=== PATIENT | male | born 1945 | race Caucasian/White ===

== ENCOUNTER 2022-02-21 13:35 | Inpatient (IN) | payer BC, MEDICARE ==
[2022-02-21 14:55] LABS: Basophils % (A) 1 %; Eosinophils # (A) 0.1 k/uL (0-0.7); Eosinophils % (A) 2 %; HCT 44.5 % (39.0-53.0); Lymphocytes # (A) 0.7 k/uL (1.0-4.8); Lymphocytes % (A) 14 %; MCHC 33.8 g/dL (31.0-37.0); MCV 85.8 fL (80.0-100.0); Mean Platelet Volume 9.2; Monocytes # (A) 0.4 k/uL (0-1.0); Monocytes % (A) 9 %; Neutrophils # (A) 3.3 k/uL (1.3-7.7); Neutrophils % (A) 70 %; Platelet Count 267 k/uL (150-450); RBC 5.18 m/uL (4.30-5.90); RDW 12.2 % (11.5-15.5); WBC 4.6 k/uL (3.8-10.6)
[2022-02-21 15:10] LABS: Partial Thromboplastin Time 25.4 sec (22.0-30.0); Prothrombin Time 10.7 sec (9.0-12.0)
--- NOTE | 2022-02-21 15:10 | XR ---
EXAMINATION TYPE: XR chest 2V DATE OF EXAM: 02/21/2022 3:04 PM COMPARISON: none TECHNIQUE: XR chest 2V Frontal and lateral views of the chest. CLINICAL INDICATION:Male, 76 years old with history of Chest Pain; FINDINGS: Lungs/Pleura: Multifocal airspace opacities most pronounced on the left. No evidence of pneumothorax or pleural effusion. Pulmonary vascularity: Unremarkable. Heart/mediastinum: Cardiomediastinal silhouette is unremarkable. Musculoskeletal: No acute osseous pathology. IMPRESSION: Multifocal airspace opacities concerning for pneumonia.
[2022-02-21 15:11] LABS: Albumin 3.5 g/dL (3.5-5.0); Calcium 8.5 mg/dL (8.4-10.2); Magnesium 2.5 mg/dL (1.6-2.3); Potassium 4.3 mmol/L (3.5-5.1); Total Protein 6.6 g/dL (6.3-8.2)
--- NOTE | 2022-02-21 16:35 | ED ---
General Adult HPI - General Chief complaint: Chest Pain Stated complaint: SOB,Cough,sent by PCP Time Seen by Provider: 02/21/22 15:56 Source: patient Mode of arrival: ambulatory Limitations: no limitations - History of Present Illness Initial comments: Dictation was produced using [employer] dictation software. please excuse any grammatical, word or spelling errors. Chief Complaint: 76-year-old male presents emergency Department with episode of chest pain History of Present Illness: Is 76-year-old male he had cold lead 3 weeks ago. He states that he was sick for several days however recovered. After return from [place] developed significant coughing. Initially was productive however last couple days as dry. Patient had some sharp chest pain is worse with deep inspiration. No associated nausea or diaphoresis. Patient states that his coughing improved after he was prescribed cough medicines from his primary care doctor. He had a discussion with primary care doctor about his chest symptoms he was instructed to come to the ER for further care. Patient overall feels better that he did since stu COVID-19. He slowly improving daily. Denies any fever. He feels mildly winded whenever he ambulates but that is also improving.. The ROS documented in this emergency department record has been reviewed and confirmed by me. Those systems with pertinent positive or negative responses have been documented in the HPI. All other systems are other negative and/or noncontributory. PHYSICAL EXAM: General Impression: Alert and oriented x3, not in acute distress HEENT: Normocephalic atraumatic, extra-ocular movements intact, pupils equal and reactive to light bilaterally, mucous membranes moist. Cardiovascular: Heart regular rate and rhythm Chest: Able to complete full sentences, no retractions, no tachypnea, mild crackles heard in the left lung base Abdomen: abdomen soft, non-tender, non-distended, no organomegaly Musculoskeletal: Pulses present and equal in all extremities, no peripheral edema Motor: no focal deficits noted Neurological: CN II-XII grossly intact, no focal motor or sensory deficits noted Skin: Intact with no visualized rashes Psych: Normal affect and mood ED course: 76-year-old male presents emergency department for atypical chest pain. Patient is recovering from COVID-19. vital signs upon arrival are within acceptable limits. EKG is unremarkable. Laboratory evaluation obtained. CBC unremarkable. Coag panel negative. Metabolic panel within acceptable limits. D-dimer significantly elevated at 6.36. Patient still testing positive on rapid COVID-[address] angiography of the chest obtained showing bilateral patchy pulmonary infiltrates and bilateral lower lobe multiple small pulmonary emboli. Patient initially order for heparin however after discussion with sound physician they requested oral eliquis. Patient be admitted with consultation to pulmonology. EKG interpretation: Ventricular rate 92, sinus rhythm,. 136, QS 86, QTC 392. No IA prolongation, no QTC prolongation, no ST or T-wave changes noted. Overall, this EKG is unremarkable - Related Data Allergies Allergy/AdvReac Type Severity Reaction Status Date / Time codeine Allergy Unknown Verified 02/21/22 17:59 Review of Systems ROS Statement: Those systems with pertinent positive or pertinent negative responses have been documented in the HPI. ROS Other: All systems not noted in ROS Statement are negative. Past Medical History Past Medical History: No Reported History History of Any Multi-Drug Resistant Organisms: None Reported Past Surgical History: Orthopedic Surgery Additional Past Surgical History / Comment(s): knee surgery Past Psychological History: No Psychological Hx Reported Smoking Status: Former smoker Past Alcohol Use History: Occasional Past Drug Use History: None Reported General Exam Limitations: no limitations Course Vital Signs 02/21/22 02/21/22 13:49 16:06 Temperature 98.9 F Pulse Rate 116 H 82 Respiratory 20 20 Rate Blood Pressure 126/80 140/102 O2 Sat by Pulse 97 98 Oximetry Medical Decision Making - Lab Data Result diagrams: 02/21/22 14:21 02/21/22 14:21 Lab Results 02/21/22 02/21/22 02/21/22 Range/Units 14:21 14:21 14:21 WBC 4.6 (3.8-10.6) k/uL RBC 5.18 (4.30-5.90) m/uL Hgb 15.0 (13.0-17.5) gm/dL Hct 44.5 (39.0-53.0) % MCV 85.8 (80.0-100.0) fL MCH 29.0 (25.0-35.0) pg MCHC 33.8 (31.0-37.0) g/dL RDW 12.2 (11.5-15.5) % Plt Count 267 (150-450) k/uL MPV 9.2 Neutrophils % 70 % Lymphocytes % 14 % Monocytes % 9 % Eosinophils % 2 % Basophils % 1 % Neutrophils # 3.3 (1.3-7.7) k/uL Lymphocytes # 0.7 L (1.0-4.8) k/uL Monocytes # 0.4 (0-1.0) k/uL Eosinophils # 0.1 (0-0.7) k/uL Basophils # 0.0 (0-0.2) k/uL PT 10.7 (9.0-12.0) sec INR 1.0 (<1.2) APTT 25.4 (22.0-30.0) sec D-Dimer (<0.60) mg/L FEU Sodium 135 L (137-145) mmol/L Potassium 4.3 (3.5-5.1) mmol/L Chloride 97 L (98-107) mmol/L Carbon Dioxide 25 (22-30) mmol/L Anion Gap 13 mmol/L BUN 22 H (9-20) mg/dL Creatinine 0.96 (0.66-1.25) mg/dL Est GFR (CKD-EPI)AfAm 89 (>60 ml/min/1.73 sqM) Est GFR (CKD-EPI)NonAf 77 (>60 ml/min/1.73 sqM) Glucose 107 H (74-99) mg/dL Calcium 8.5 (8.4-10.2) mg/dL Magnesium 2.5 H (1.6-2.3) mg/dL Total Bilirubin 1.0 (0.2-1.3) mg/dL AST 44 (17-59) U/L ALT 49 (4-49) U/L Alkaline Phosphatase 90 (38-126) U/L Troponin I (0.000-0.034) ng/mL Total Protein 6.6 (6.3-8.2) g/dL Albumin 3.5 (3.5-5.0) g/dL Coronavirus (PCR) (Not Detectd) 02/21/22 02/21/22 02/21/22 Range/Units 14:21 16:06 17:05 WBC (3.8-10.6) k/uL RBC (4.30-5.90) m/uL Hgb (13.0-17.5) gm/dL Hct (39.0-53.0) % MCV (80.0-100.0) fL MCH (25.0-35.0) pg MCHC (31.0-37.0) g/dL RDW (11.5-15.5) % Plt Count (150-450) k/uL MPV Neutrophils % % Lymphocytes % % Monocytes % % Eosinophils % % Basophils % % Neutrophils # (1.3-7.7) k/uL Lymphocytes # (1.0-4.8) k/uL Monocytes # (0-1.0) k/uL Eosinophils # (0-0.7) k/uL Basophils # (0-0.2) k/uL PT (9.0-12.0) sec INR (<1.2) APTT (22.0-30.0) sec D-Dimer 6.36 H (<0.60) mg/L FEU Sodium (137-145) mmol/L Potassium (3.5-5.1) mmol/L Chloride (98-107) mmol/L Carbon Dioxide (22-30) mmol/L Anion Gap mmol/L BUN (9-20) mg/dL Creatinine (0.66-1.25) mg/dL Est GFR (CKD-EPI)AfAm (>60 ml/min/1.73 sqM) Est GFR (CKD-EPI)NonAf (>60 ml/min/1.73 sqM) Glucose (74-99) mg/dL Calcium (8.4-10.2) mg/dL Magnesium (1.6-2.3) mg/dL Total Bilirubin (0.2-1.3) mg/dL AST (17-59) U/L ALT (4-49) U/L Alkaline Phosphatase (38-126) U/L Troponin I <0.012 (0.000-0.034) ng/mL Total Protein (6.3-8.2) g/dL Albumin (3.5-5.0) g/dL Coronavirus (PCR) Detected A (Not Detectd) Disposition Clinical Impression: Pulmonary emboli, COVID-19 Disposition: ADMITTED IP TO THIS [facility] Condition: Fair Referrals: Perla Santiago DO [Primary Care Provider] - 1-2 days Decision Time: 18:04
[2022-02-21] MEDS ORDERED: HEPARIN SODIUM 1,000 UN/ML (10ML VL) IV ONE (17:47)
[2022-02-21] MEDS ORDERED: HEPARIN SODIUM 1,000 UN/ML (10ML VL) IV PRN (17:47)
--- NOTE | 2022-02-21 17:51 | CT ---
EXAMINATION TYPE: CT angio chest DATE OF EXAM: 02/21/2022 COMPARISON: None HISTORY: pe CT DLP: 316.7 mGycm Automated exposure control for dose reduction was used. CONTRAST: Performed with IV Contrast, patient injected with 80 mL of Isovue 370. Images obtained from the thoracic inlet to the diaphragm with the IV contrast. There are 3-D post processed images. There is some patchy reticular interstitial and airspace infiltrate in the lateral left upper lobe. T here is bilateral lower lobe patchy predominantly interstitial infiltrates. Thoracic aorta is intact. No aneurysm or dissection. No mediastinal adenopathy. There are no hilar ma sses. There is filling defect in the right lower lobe pulmonary artery in the posterior basal segment branch. There are small multiple filling defects in the left lower lobe pulmonary artery in the ante rior and lateral basal segment branches. The thoracic spine is intact. Sternum is intact. No compression fracture. The upper abdominal soft tissues are intact. IMPRESSION: Bilateral patchy pulmonary infiltrates. 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 Bilateral lower lobe multiple small pulmonary emboli. Exam was discussed with emergency room attending staff at 5:45 PM.
[2022-02-21] MEDS ORDERED: HEPARIN SOD,PORK IN 0.45% NACL 25,000 UNIT in 0.45% NACL 1 250ML.BAG IV SCH (18:00)
[2022-02-21] MEDS ORDERED: NALOXONE 0.4 MG/ML 1 ML VIAL IV PRN (18:01)
[2022-02-21] MEDS ORDERED: SODIUM CHLORIDE 0.9% 1,000 ML IV SCH (18:15)
[2022-02-21] MEDS: APIXABAN 5 MG TAB PO SCH (18:26)
[2022-02-21] MEDS ORDERED: BENZONATATE 100 MG CAP PO PRN ×2 (21:36→23:41)
--- NOTE | 2022-02-22 00:06 | P.HPIM ---
History of Present Illness H&P Date: 02/21/22 Chief Complaint: shortness of breath 76 year old male healthy overall, denies any significant past medical history patient comes in due to worsening shortness of breath over the past 4 days. he was diagnosed with covid 3 weeks ago, and had minimal symptoms the whole durati on of his illness, however, he started noticed worsening coughing and shortness of breath with exertion over the past 4 days , which got worse today and decided to come in for evaluation. he also was experiencing retrosternal chest pain across his chest today worse with breathing and coughing he denies any recent travel, hospital stay , he is unvaccinated, he denies any cardiac history or blood clots in the ED blood work showed elevated d dimer, covid positive, CTA of the chest showed bilateral patchy infiltrates and multiple small PE s inthe lower lobes Review of Systems Pertinent positives as noted in HPI. All other systems were reviewed and are negative Past Medical History Past Medical History: No Reported History History of Any Multi-Drug Resistant Organisms: None Reported Past Surgical History: Orthopedic Surgery Additional Past Surgical History / Comment(s): knee surgery Past Psychological History: No Psychological Hx Reported Smoking Status: Former smoker Past Alcohol Use History: Occasional Past Drug Use History: None Reported - Past Family History Father Additional Family Medical History / Comment(s): DOUBLE HERNIA Mother Additional Family Medical History / Comment(s): MOM HAD A BAD HEART AT 96 Medications and Allergies Home Medications Medication Instructions Recorded Confirmed Type Ascorbic Acid/Collagen Hydr 1 cap PO DAILY 02/21/22 02/21/22 History [Collagen Plus Vit C Capsule] Benzonatate [Tessalon Perle] 200 mg PO TID PRN 02/21/22 02/21/22 History Fluticasone Propionate 1 - 2 spray EA NOSTRIL DAILY PRN 02/21/22 02/21/22 History Immunity Support Supplement 1 tab PO DAILY 02/21/22 02/21/22 History Montelukast [Singulair] 10 mg PO DAILY 02/21/22 02/21/22 History [place]-3/Dha/Epa/Fish Oil [Fish Oil 1 cap PO DAILY 02/21/22 02/21/22 History 1,000 mg Softgel] Omeprazole [PriLOSEC] 40 mg PO DAILY 02/21/22 02/21/22 History Pyridoxine [Vitamin B-6] 50 mg PO DAILY 02/21/22 02/21/22 History Vitamin D W/Zinc 1 tab PO DAILY 02/21/22 02/21/22 History hydrOXYzine pamoate [hydrOXYzine 25 mg PO HS 02/21/22 02/21/22 History PAMOATE] Allergies Allergy/AdvReac Type Severity Reaction Status Date / Time codeine Allergy Unknown Verified 02/21/22 17:59 Physical Exam Vitals: Vital Signs Temp Pulse Resp BP Pulse Ox 02/21/22 18:30 82 20 140/97 98 02/21/22 16:06 82 20 140/102 98 02/21/22 13:49 98.9 F 116 H 20 126/80 97 Intake and Output 02/21/22 02/21/22 02/21/22 06:59 14:59 22:59 Other: Weight 77.111 kg Constitutional: No acute distress, conversant, pleasant Eyes: Anicteric sclerae, moist conjunctiva, Pupils equal round reactive to light ENMT: NC/AT Oropharynx clear, no erythema, or exudates Neck: Supple, no masses, or JVD No carotid bruits No thyromegaly Lungs: Clear to auscultation Clear to percussion Normal respiratory effort, no accessory muscle use Cardiovascular: Heart regular in rate and rhythm, No murmurs, gallops, or rubs No peripheral edema Abdominal: Soft Nontender, no guarding, rebound or rigidity Abdomen moving with respiration Normoactive bowel sounds No hepatomegaly, No splenomegaly No palpable mass No abdominal wall hernia noted Skin: Normal temperature, tone, texture, turgor No induration No subcutaneous nodules No rash, lesions No ulcers Extremities: No digital cyanosis No clubbing Pedal pulses intact and symmetrical Radial pulses intact and symmetrical No calf tenderness Psychiatric: Alert and oriented to person, place and time Appropriate affect fair judgement Neuro Muscles Strength 5/5 in all 4 extremities Sensation to light touch grossly present throughout Cranial nerves II-XII grossly intact No focal sensory deficits Lymphatics: no palpable cervical or supraclavicular , lymph nodes Results CBC & Chem 7: 02/21/22 14:21 02/21/22 14:21 Labs: Abnormal Lab Results - Last 24 Hours (Table) 02/21/22 02/21/22 02/21/22 Range/Units 14:21 14:21 16:06 Lymphocytes # 0.7 L (1.0-4.8) k/uL D-Dimer 6.36 H (<0.60) mg/L FEU Sodium 135 L (137-145) mmol/L Chloride 97 L (98-107) mmol/L BUN 22 H (9-20) mg/dL Glucose 107 H (74-99) mg/dL Magnesium 2.5 H (1.6-2.3) mg/dL Coronavirus (PCR) (Not Detectd) 02/21/22 Range/Units 17:05 Lymphocytes # (1.0-4.8) k/uL D-Dimer (<0.60) mg/L FEU Sodium (137-145) mmol/L Chloride (98-107) mmol/L BUN (9-20) mg/dL Glucose (74-99) mg/dL Magnesium (1.6-2.3) mg/dL Coronavirus (PCR) Detected A (Not Detectd) Assessment and Plan Assessment: COVid bilateral PE vital signs stable patient was started on eliquis in the ED admitted for pulmonary evaluation monitor vital signs monitor for oxygen requirement patient was not hypoxic with ambulation on room air PRN cough suppressant full code DVT PPX on eliquis for PE
[2022-02-22] MEDS ORDERED: PANTOPRAZOLE 40 MG TABLET PO SCH (07:30)
[2022-02-22] MEDS ORDERED: MONTELUKAST 10 MG TAB PO SCH (09:00)
[2022-02-22] MEDS: APIXABAN 5 MG TAB PO SCH (09:10)
--- NOTE | 2022-02-22 09:21 | P.DS ---
Providers Date of admission: 02/21/22 18:01 Expected date of discharge: 02/22/22 Attending physician: Juan Glaser MD Consults: 02/21/22 17:53 Consult Physician Routine Consulting Provider: Ishmael Dangelo Consult Reason/Comments: PE, covid Do you want consulting provider notified?: Yes Primary care physician: Perla Santiago DO Hospital Course: 60 male with no past medical history recent diagnosis of COVID-19 3 weeks ago presents the ED for chest pain and shortness of breath. In the ED, his vital signs are stable except for tachycardia with heart rate of 116. CBC was benign. Coagulation panel was negative. D-dimer was 6.36. CMP showed sodium of 135, chloride of 97, BUN of 22, glucose of 107. Magnesium was 2.5. Troponin was less than 0.012. COVID-19 positive. EKG showed normal sinus rhythm with ventricular rate of 92. Chest x-ray showed multifocal airspace opacities concerning for pneumonia. CTA chest showed bilateral patchy pulmonary infiltrates, consistent with pulmonary fibrosis and multifocal pneumonia, bilateral lower lobe multiple small pulmonary emboli. Patient was started on alkalosis and admitted for pulmonary consultation. Patient was seen and examined. No acute events overnight. Patient reports no more chest pain. His shortness of breath has resolved. He is saturating 95% on room air. He is not tachycardic. His pulmonary embolus is likely related to COVID-19. Patient will be discharged home with Eliquis. He will be discharged home with Azithromycin 500 mg PO QD x 3 days for multifocal PNA. He does not require any supplemental oxygen with regard to his Pneumonia. Pulmonology consultation is pending. He has been encouraged to increased hydration by mouth. He will need treatment with Eliquis for 6 months and need to follow up with Hematology afterwards for hypercoaguable workup. Patient verbalzied understanding of the plan. Pertinent studies include chest x-ray, CTA chest. General: non toxic, no distress, appears at stated age Derm: warm, dry Head: atraumatic, normocephalic, symmetric Eyes: EOMI, no lid lag, anicteric sclera Mouth: no lip lesion, mucus membranes moist Cardiovascular: S1S2 reg, no murmur Lungs: Decreased breath sounds bilateral, no rhonchi, no rales , no accessory muscle use Ext: no gross muscle atrophy, no edema, no contractures Neuro: no focal neuro deficits Psych: Alert, oriented, appropriate affect Discharge diagnosis: #Pulmonary embolus #COVID-19 pneumonia #Multifocal pneumonia #Hypochloremic hyponatremia This complex discharge took about 35 minutes to complete. Patient Condition at Discharge: Stable Plan - Discharge Summary Discharge Rx Participant: No New Discharge Prescriptions: No Action Pyridoxine [Vitamin B-6] 50 mg PO DAILY Vitamin D W/Zinc 1 tab PO DAILY Immunity Support Supplement 1 tab PO DAILY Benzonatate [Tessalon Perle] 200 mg PO TID PRN PRN Reason: Cough Fluticasone Propionate 1 - 2 spray EA NOSTRIL DAILY PRN PRN Reason: Congestion Ascorbic Acid/Collagen Hydr [Collagen Plus Vit C Capsule] 1 cap PO DAILY hydrOXYzine pamoate [hydrOXYzine PAMOATE] 25 mg PO HS Omeprazole [PriLOSEC] 40 mg PO DAILY Montelukast [Singulair] 10 mg PO DAILY [place]-3/Dha/Epa/Fish Oil [Fish Oil 1,000 mg Softgel] 1 cap PO DAILY Discharge Medication List Ascorbic Acid/Collagen Hydr [Collagen Plus Vit C Capsule] 1 cap PO DAILY 02/21/22 [History] Benzonatate [Tessalon Perle] 200 mg PO TID PRN 02/21/22 [History] Fluticasone Propionate 1 - 2 spray EA NOSTRIL DAILY PRN 02/21/22 [History] Immunity Support Supplement 1 tab PO DAILY 02/21/22 [History] Montelukast [Singulair] 10 mg PO DAILY 02/21/22 [History] [place]-3/Dha/Epa/Fish Oil [Fish Oil 1,000 mg Softgel] 1 cap PO DAILY 02/21/22 [History] Omeprazole [PriLOSEC] 40 mg PO DAILY 02/21/22 [History] Pyridoxine [Vitamin B-6] 50 mg PO DAILY 02/21/22 [History] Vitamin D W/Zinc 1 tab PO DAILY 02/21/22 [History] hydrOXYzine pamoate [hydrOXYzine PAMOATE] 25 mg PO HS 02/21/22 [History] Follow up Appointment(s)/Referral(s): Perla Santiago DO [Primary Care Provider] - 1-2 days
[2022-02-22 11:55] VITALS: BP 131/81; PULSE 71; RESP 20; TEMP 96.9
--- NOTE | 2022-02-22 13:39 | P.CNPUL ---
History of Present Illness Consult date: 02/22/22 Requesting physician: Juan Glaser Reason for consult: dyspnea, cough, hypoxemia, pulmonary embolism, abnormal CXR/CT Chief complaint: Shortness of breath and cough. History of present illness: Pulmonary consult dated 02/22/2022. 76-year-old male, seen in consultation today, in room 373. The patient is seen in the emergency department, on February 21. He came in with shortness breath, cough, and chest pain, having been sent in by his time in her care physician. The patient hasn't been feeling well for some time. He apparently recently tested positive for coronavirus. He is not vaccinated. The patient was seen in the emergency room, for shortness breath, chest pain, and cough. He states that his cough is rather harsh. The patient sees a family doctor in [facility]. The patient apparently does not really go to the doctor frequently, and states his only medical problem is acid reflux disease/heartburn. Currently he is on room air. He is getting saline at 20 mL an hour. He was started on a factor X a inhibitor. His chest x-ray shows some bilateral patchy opacities. In addition, his CT angiogram showed some round glass opacities bilaterally, and also some small bilateral lobe pulmonary emboli. CBC is completely normal. D- dimer was 6.36. Sodium 135, potassium 4.3, chlorides 97, CO2 25, anion gap 13, BUN 22, and creatinine 0.96. He did test positive for coronavirus by PCR. Review of Systems REVIEW OF SYSTEMS: CONSTITUTIONAL: [Negative.] NEUROLOGIC: [ Negative.] HEENT: [ Negative.] CARDIAC: Chest discomfort. PULMONARY: Cough and shortness of breath. GI: [Negative.] : [Negative.] RHEUMATOLOGIC: [ Negative.] IMMUNOLOGIC: [ Negative.] ENDOCRINE: [Negative. ] DERMATOLOGIC: [Negative.] Past Medical History Past Medical History: No Reported History History of Any Multi-Drug Resistant Organisms: None Reported Past Surgical History: Orthopedic Surgery Additional Past Surgical History / Comment(s): knee surgery Past Anesthesia/Blood Transfusion Reactions: No Reported Reaction Past Psychological History: No Psychological Hx Reported Smoking Status: Former smoker Past Alcohol Use History: Occasional Past Drug Use History: None Reported - Past Family History Father Additional Family Medical History / Comment(s): DOUBLE HERNIA Mother Additional Family Medical History / Comment(s): MOM HAD A BAD HEART AT 96 Medications and Allergies Home Medications Medication Instructions Recorded Confirmed Type Ascorbic Acid/Collagen Hydr 1 cap PO DAILY 02/21/22 02/21/22 History [Collagen Plus Vit C Capsule] Benzonatate [Tessalon Perle] 200 mg PO TID PRN 02/21/22 02/21/22 History Fluticasone Propionate 1 - 2 spray EA NOSTRIL DAILY PRN 02/21/22 02/21/22 History Immunity Support Supplement 1 tab PO DAILY 02/21/22 02/21/22 History Montelukast [Singulair] 10 mg PO DAILY 02/21/22 02/21/22 History [place]-3/Dha/Epa/Fish Oil [Fish Oil 1 cap PO DAILY 02/21/22 02/21/22 History 1,000 mg Softgel] Omeprazole [PriLOSEC] 40 mg PO DAILY 02/21/22 02/21/22 History Pyridoxine [Vitamin B-6] 50 mg PO DAILY 02/21/22 02/21/22 History Vitamin D W/Zinc 1 tab PO DAILY 02/21/22 02/21/22 History hydrOXYzine pamoate [hydrOXYzine 25 mg PO HS 02/21/22 02/21/22 History PAMOATE] Apixaban [Eliquis Starter Pack 5 - 10 mg PO DIRECTED 30 Days 02/22/22 Rx (for VTE)] #1 each Allergies Allergy/AdvReac Type Severity Reaction Status Date / Time codeine Allergy Unknown Verified 02/21/22 17:59 Physical Exam Osteopathic Statement: *. No significant issues noted on an osteopathic structural exam other than those noted in the History and Physical/Consult. Vitals: Vital Signs Temp Pulse Pulse Resp BP BP Pulse Ox 02/22/22 11:54 96.9 F L 71 20 131/81 95 02/22/22 08:50 97.3 F L 87 18 131/78 95 02/22/22 04:00 96.3 F L 80 18 133/70 96 02/22/22 02:00 92 18 02/21/22 21:01 96.3 F L 92 18 136/76 97 02/21/22 21:00 96.3 F L 92 18 136/76 97 02/21/22 20:00 68 16 148/68 98 10/28/22 18:30 82 20 140/97 98 02/21/22 16:06 82 20 140/102 98 02/21/22 13:49 98.9 F 116 H 20 126/80 97 Intake and Output 02/21/22 02/22/22 02/22/22 22:59 06:59 14:59 Intake Total 125 Balance 125 Intake: Oral 125 Other: Voiding Method Toilet Toilet # Voids 1 Weight 77.111 kg 77 kg No acute distress, oriented 3. No audible wheezing, use of accessory muscles, or conversational dyspnea. Currently on room air. HEENT examination is grossly unremarkable. Neck supple. Full range of motion. No adenopathy thyromegaly or neck vein distention. Cardiovascular examination reveals regular rhythm rate. S1-S2 normal. No S3 or S4. No discernible murmur noted. Heart rate 71 bpm. Lungs reveal clear breath sounds Breath sounds are equal bilaterally. No adventitious lung sounds including wheezes rhonchi or crackles. Abdomen soft bowel sounds are heard. No masses or tenderness. Extremities are intact. No cyanosis clubbing or edema. Skin is without rash or lesion. Neurologic examination is brief but nonfocal. Results - Laboratory Findings CBC and BMP: 02/21/22 14:21 02/21/22 14:21 PT/INR, D-dimer PT 10.7 sec (9.0-12.0) 02/21/22 14:21 INR 1.0 (<1.2) 02/21/22 14:21 D-Dimer 6.36 mg/L FEU (<0.60) H 02/21/22 16:06 Abnormal lab findings: Abnormal Labs 02/21/22 02/21/22 02/21/22 14:21 14:21 16:06 Lymphocytes # 0.7 L D-Dimer 6.36 H Sodium 135 L Chloride 97 L BUN 22 H Glucose 107 H Magnesium 2.5 H Coronavirus (PCR) 02/21/22 17:05 Lymphocytes # D-Dimer Sodium Chloride BUN Glucose Magnesium Coronavirus (PCR) Detected A - Diagnostic Findings Chest x-ray: image reviewed CT scan - chest: image reviewed Assessment and Plan Assessment: Cough, shortness of breath, and chest pain, secondary to coronavirus associated pneumonia, mild, and bilateral small lower lobe pulmonary emboli. Recent diagnosis of coronavirus infection. Patient un-vaccinated against coronavirus. History of GERD/heartburn. Plan: Plan dated 02/22/2022. In my opinion, the patient could be discharged. Clinically he is very stable. The patient is ready on a factor X a inhibitor. Because this is a provoked pulmonary embolism, and glucose pulmonary emboli are small, the patient should only be treated for 3 months, not 6 months. No additional recommendations are made. The patient should follow-up with his primary care physician, who has a practice in [facility]. The patient could be discharged home today if okay with the primary service. Time with Patient: Greater than 30
== END 2022-02-22 15:53 | disposition home or self-care (01) | DRG 177 ==
LOC: EC 13:35 → 3SCARD 18:01
PROVIDERS: ADMIT Student in an Organized Health Care Education/Training Program; ATTEND Student in an Organized Health Care Education/Training Program
DX: U07.1 COVID-19 (principal); I26.99 Other pulmonary embolism without acute cor pulmonale; J12.82 Pneumonia due to coronavirus disease 2019; E87.1 Hypo-osmolality and hyponatremia; E87.8 Other disorders of electrolyte and fluid balance, not elsewhere classified; J84.10 Pulmonary fibrosis, unspecified; R09.02 Hypoxemia; Z79.899 Other long term (current) drug therapy; Z87.891 Personal history of nicotine dependence; Z60.2 Problems related to living alone; Z28.310 Unvaccinated for COVID-19; Z88.5 Allergy status to narcotic agent; K21.9 Gastro-esophageal reflux disease without esophagitis
CPT/HCPCS: 36415; 71046; 71275; 80053; 83735; 84484; 85025; 85379; 85610; 85730; 87635; 93005